=== PATIENT | female | born 1960 | race Caucasian/White ===

== ENCOUNTER 2016-06-28 18:48 | Emergency (ER) | payer OTHER ==
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
--- NOTE | 2016-06-28 21:49 | ED ORDER SUMMARY ---
..... Patient: AGUEDA TRAN OrderSheet [facility] VisitID: [id number] [place] [address] 56y, F Registration Date/Time: 06/28/2016 ORDER SHEET Weight: 94.3 kg (stated) Allergies: Penicillins, Sulfa Antibiotics GENERAL ORDERS: Thoracic Spine 3V Urgent (19:15 06/28/2016 EKoroleva P.A.-C) (Ack 19:21 NHouse ER Tech1) (20:46 MCampbell) Lumbar Spine 2 or 3V Urgent (19:15 06/28/2016 EKoroleva P.A.-C) (Ack 19:21 NHouse ER Tech1) (20:46 MCampbell) UA-Culture if indicated Urgent (19:16 06/28/2016 EKoroleva P.A.-C) (Ack 19:21 NHouse ER Tech1) (19:57 RCollier R.N.) MEDICATION ORDERS: Hydrocodone-APAP PO 5/325 mg (NOW, HIGH ALERT MEDICATION) (20:04 06/28/2016 EKoroleva P.A.-C) (Ack 20:04 RCollier R.N.) (20:08 RCollier R.N.) IV FLUIDS: ORDER SHEET NOTES: [Electronically signed by Becky Lambert R.N. (21:58 06/28/2016)] [Electronically signed by Chana Shelton P.A.-C (22:49 06/28/2016)] [Electronically locked/signed by Becky Lambert R.N. (21:58 06/28/2016)]
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
--- NOTE | 2016-06-28 21:49 | ED ORDER SUMMARY ---
..... Patient: AGUEDA TRAN OrderSheet [facility] VisitID: [id number] [place] [address] 56y, F Registration Date/Time: 06/28/2016 ORDER SHEET Weight: 94.3 kg (stated) Allergies: Penicillins, Sulfa Antibiotics GENERAL ORDERS: Thoracic Spine 3V Urgent (19:15 06/28/2016 EKoroleva P.A.-C) (Ack 19:21 NHouse ER Tech1) (20:46 MCampbell) Lumbar Spine 2 or 3V Urgent (19:15 06/28/2016 EKoroleva P.A.-C) (Ack 19:21 NHouse ER Tech1) (20:46 MCampbell) UA-Culture if indicated Urgent (19:16 06/28/2016 EKoroleva P.A.-C) (Ack 19:21 NHouse ER Tech1) (19:57 RCollier R.N.) MEDICATION ORDERS: Hydrocodone-APAP PO 5/325 mg (NOW, HIGH ALERT MEDICATION) (20:04 06/28/2016 EKoroleva P.A.-C) (Ack 20:04 RCollier R.N.) (20:08 RCollier R.N.) IV FLUIDS: ORDER SHEET NOTES: [Electronically signed by Becky Lambert R.N. (21:58 06/28/2016)] [Electronically signed by Chana Shelton P.A.-C (22:49 06/28/2016)] [Electronically locked/signed by Becky Lambert R.N. (21:58 06/28/2016)]
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
--- NOTE | 2016-06-28 22:49 | ED MED RECONCILIATION SUMMARY ---
Patient: AGUEDA TRAN Medication Reconciliation Report [facility] VisitID: [id number] [address] [place] [address] 56y, F Registration Date/Time: 06/28/2016 Weight: 94.3 kg Height/Length: 64 in. BMI: 35.7 ALLERGIES: Penicillins, Sulfa Antibiotics The patient's Home Medications are listed below: THE FOLLOWING MEDICATIONS NEED TO BE RECONCILED: Albuterol Sulfate Inhalation, doesn't have one ASA Oral Omeprazole Oral The source(s) of the original Home Medication information: patient The following Medications were given to the patient in the Emergency Department: Hydrocodone-APAP [PO] PO 1 tab, administered: 06/28/2016 8:08:00 PM The following Medications were prescribed to the patient: Motrin 800 mg tablets: take 1 tablet orally every 8 hours for 5 days, as needed for pain. Dispense fifteen (15). No refill. Substitution is permissible. -- Chana Shelton, P.ASharee-Jonathan Ultram 50 mg: take 1 orally every 6 hours for 3 days, as needed for pain. Dispense fifteen (15). No refills. Substitution is permissible. -- Chana Shelton, P.A.-C
--- NOTE | 2016-06-28 22:49 | ED MED RECONCILIATION SUMMARY ---
Patient: AGUEDA TRAN Medication Reconciliation Report [facility] VisitID: [id number] [address] [place] [address] 56y, F Registration Date/Time: 06/28/2016 Weight: 94.3 kg Height/Length: 64 in. BMI: 35.7 ALLERGIES: Penicillins, Sulfa Antibiotics The patient's Home Medications are listed below: THE FOLLOWING MEDICATIONS NEED TO BE RECONCILED: Albuterol Sulfate Inhalation, doesn't have one ASA Oral Omeprazole Oral The source(s) of the original Home Medication information: patient The following Medications were given to the patient in the Emergency Department: Hydrocodone-APAP [PO] PO 1 tab, administered: 06/28/2016 8:08:00 PM The following Medications were prescribed to the patient: Motrin 800 mg tablets: take 1 tablet orally every 8 hours for 5 days, as needed for pain. Dispense fifteen (15). No refill. Substitution is permissible. -- Chana Shelton, P.ASharee-Jonathan Ultram 50 mg: take 1 orally every 6 hours for 3 days, as needed for pain. Dispense fifteen (15). No refills. Substitution is permissible. -- Chana Shelton, P.A.-C
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
--- NOTE | 2016-06-28 22:49 | ED MAR SUMMARY ---
..... Medication Administration Record [facility] [address] [place] [address] Patient: AGUEDA TRAN Visit ID: [id number] 56y, F Weight: 94.3 kg Height/Length: 64 in BMI: 35.7 ALLERGIES: Penicillins, Sulfa Antibiotics Given 20:08 06/28/2016 Becky Lambert RShareeNSharee Medication Administered: HYDROCODONE-APAP [PO] (HYDROCODONE-ACETAMINOPHEN), Dose: 1 tab 5/325 mg Tablets PO. Medication Ordered: Hydrocodone-APAP PO 5/325 mg (NOW, HIGH ALERT MEDICATION).
--- NOTE | 2016-06-28 22:49 | ED MAR SUMMARY ---
..... Medication Administration Record [facility] [address] [place] [address] Patient: AGUEDA TRAN Visit ID: [id number] 56y, F Weight: 94.3 kg Height/Length: 64 in BMI: 35.7 ALLERGIES: Penicillins, Sulfa Antibiotics Given 20:08 06/28/2016 Becky Lambert RShareeNSharee Medication Administered: HYDROCODONE-APAP [PO] (HYDROCODONE-ACETAMINOPHEN), Dose: 1 tab 5/325 mg Tablets PO. Medication Ordered: Hydrocodone-APAP PO 5/325 mg (NOW, HIGH ALERT MEDICATION).
== END 2016-06-28 21:58 | disposition home or self-care (01) ==
LOC: ED SRH 18:48
DX: S20.229A Contusion of unspecified back wall of thorax, initial encounter (principal); Y04.8XXA Assault by other bodily force, initial encounter; Y93.9 Activity, unspecified; Y92.9 Unspecified place or not applicable; Y99.9 Unspecified external cause status; K21.9 Gastro-esophageal reflux disease without esophagitis; F17.200 Nicotine dependence, unspecified, uncomplicated; Z79.82 Long term (current) use of aspirin; Z88.2 Allergy status to sulfonamides
CPT/HCPCS: 90004

== ENCOUNTER 2016-06-29 19:01 | Emergency (ER) | payer OTHER ==
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
--- NOTE | 2016-06-29 22:42 | ED ORDER SUMMARY ---
..... Patient: AGUEDA TRAN OrderSheet [facility] VisitID: [id number] [place] [address] 56y, F Registration Date/Time: 06/29/2016 ORDER SHEET Weight: 97.0 kg (stated) Allergies: Penicillins, Sulfa Antibiotics GENERAL ORDERS: Rapid Influenza Screen (Nasal Pharyngeal) (Nasal pharyngeal ) Urgent (21:40 06/29/2016 HSoule verbal order read back to EKoroleva P.A.-C) (Ack 21:44 LTapper) (21:55 AMcQuoid ER Tech1) Chest 2V Urgent (21:40 06/29/2016 EKoroleva P.A.-C) (Ack 21:44 LTapper) (21:52 MCampbell) MEDICATION ORDERS: - (tamiflu 75 mg po now) (22:23 06/29/2016 EKoroleva P.A.-C) (Ack 22:43 HSoule) (22:52 HSoule) Tylenol w Codeine PO 2 tabs (HIGH ALERT MEDICATION, NOW) (22:43 06/29/2016 EKoroleva P.A.-C) (22:52 HSoule) Motrin PO 800 mg (NOW) (22:43 06/29/2016 EKoroleva P.A.-C) (22:52 HSoule) Phenergan PO 25 mg (HIGH ALERT MEDICATION, NOW) (22:43 06/29/2016 EKoroleva P.A.-C) (22:52 HSoule) Tylenol PO 325 mg (NOW) (23:15 06/29/2016 EKoroleva P.A.-C) (23:18 Colin R.N.) IV FLUIDS: ORDER SHEET NOTES: [Electronically signed by Becky Lambert R.N. (23:51 06/29/2016)] [Electronically signed by Chana Shelton P.A.-C (13:14 06/30/2016)] [Electronically locked/signed by Becky Lambert R.N. (23:51 06/29/2016)]
--- NOTE | 2016-06-29 22:42 | ED ORDER SUMMARY ---
..... Patient: AGUEDA TRAN OrderSheet [facility] VisitID: [id number] [place] [address] 56y, F Registration Date/Time: 06/29/2016 ORDER SHEET Weight: 97.0 kg (stated) Allergies: Penicillins, Sulfa Antibiotics GENERAL ORDERS: Rapid Influenza Screen (Nasal Pharyngeal) (Nasal pharyngeal ) Urgent (21:40 06/29/2016 HSoule verbal order read back to EKoroleva P.A.-C) (Ack 21:44 LTapper) (21:55 AMcQuoid ER Tech1) Chest 2V Urgent (21:40 06/29/2016 EKoroleva P.A.-C) (Ack 21:44 LTapper) (21:52 MCampbell) MEDICATION ORDERS: - (tamiflu 75 mg po now) (22:23 06/29/2016 EKoroleva P.A.-C) (Ack 22:43 HSoule) (22:52 HSoule) Tylenol w Codeine PO 2 tabs (HIGH ALERT MEDICATION, NOW) (22:43 06/29/2016 EKoroleva P.A.-C) (22:52 HSoule) Motrin PO 800 mg (NOW) (22:43 06/29/2016 EKoroleva P.A.-C) (22:52 HSoule) Phenergan PO 25 mg (HIGH ALERT MEDICATION, NOW) (22:43 06/29/2016 EKoroleva P.A.-C) (22:52 HSoule) Tylenol PO 325 mg (NOW) (23:15 06/29/2016 EKoroleva P.A.-C) (23:18 Colin R.N.) IV FLUIDS: ORDER SHEET NOTES: [Electronically signed by Becky Lambert R.N. (23:51 06/29/2016)] [Electronically signed by Chana Shelton P.A.-C (13:14 06/30/2016)] [Electronically locked/signed by Becky Lambert R.N. (23:51 06/29/2016)]
--- NOTE | 2016-06-29 23:08 | DIAGNOSTIC IMAGING REPORT ---
PROCEDURE: XR CHEST 2 VIEW INDICATION: FEVER, initial encounter TECHNIQUE: PA and lateral view. COMPARISON: None. FINDINGS: Lungs are clear. Cardiovascular structures are normal. Bony thorax is unremarkable. IMPRESSION: 1. Negative chest.
--- NOTE | 2016-06-30 13:15 | ED MAR SUMMARY ---
..... Medication Administration Record [facility] [address] [place] [address] Patient: AGUEDA TRAN Visit ID: [id number] 56y, F Weight: 97.0 kg Height/Length: 64 in BMI: 36.7 ALLERGIES: Penicillins, Sulfa Antibiotics Given 06/29/2016 Tatiana Arvizu, Medication Administered: TAMIFLU [PO], Dose: 75 mg Capsules PO. Medication Ordered: - (tamiflu 75 mg po now). Given :06/29/2016 Tatiana Arvizu, Medication Administered: TYLENOL W CODEINE [PO] (ACETAMINOPHEN-CODEINE), Dose: 2 tab Tablets PO. Medication Ordered: Tylenol w Codeine PO 2 tabs (HIGH ALERT MEDICATION, NOW). Given 06/29/2016 Tatiana Arvizu, Medication Administered: MOTRIN [PO], Dose: 800 mg Tablets PO. Medication Ordered: Motrin PO 800 mg (NOW). Given :06/29/2016 Tatiana Arvizu, Medication Administered: PHENERGAN [PO] (PROMETHAZINE HCL), Dose: 25 mg Tablets PO. Medication Ordered: Phenergan PO 25 mg (HIGH ALERT MEDICATION, NOW). Given 06/29/2016 Becky Lambert R.N. Medication Administered: TYLENOL [PO] (ACETAMINOPHEN), Dose: 325 mg Tablets PO. Medication Ordered: Tylenol PO 325 mg (NOW).
--- NOTE | 2016-06-30 13:15 | ED MAR SUMMARY ---
..... Medication Administration Record [facility] [address] [place] [address] Patient: AGUEDA TRAN Visit ID: [id number] 56y, F Weight: 97.0 kg Height/Length: 64 in BMI: 36.7 ALLERGIES: Penicillins, Sulfa Antibiotics Given 06/29/2016 Tatiana Arvizu, Medication Administered: TAMIFLU [PO], Dose: 75 mg Capsules PO. Medication Ordered: - (tamiflu 75 mg po now). Given :06/29/2016 Tatiana Arvizu, Medication Administered: TYLENOL W CODEINE [PO] (ACETAMINOPHEN-CODEINE), Dose: 2 tab Tablets PO. Medication Ordered: Tylenol w Codeine PO 2 tabs (HIGH ALERT MEDICATION, NOW). Given 06/29/2016 Tatiana Arvizu, Medication Administered: MOTRIN [PO], Dose: 800 mg Tablets PO. Medication Ordered: Motrin PO 800 mg (NOW). Given :06/29/2016 Tatiana Arvizu, Medication Administered: PHENERGAN [PO] (PROMETHAZINE HCL), Dose: 25 mg Tablets PO. Medication Ordered: Phenergan PO 25 mg (HIGH ALERT MEDICATION, NOW). Given 06/29/2016 Becky Lambert R.N. Medication Administered: TYLENOL [PO] (ACETAMINOPHEN), Dose: 325 mg Tablets PO. Medication Ordered: Tylenol PO 325 mg (NOW).
--- NOTE | 2016-06-30 13:15 | ED MED RECONCILIATION SUMMARY ---
Patient: AGUEDA TARN Medication Reconciliation Report [facility] VisitID: [id number] [place] [address] 56y, F Registration Date/Time: 06/29/2016 Weight: 97.0 kg Height/Length: 64 in. BMI: 36.7 ALLERGIES: Penicillins, Sulfa Antibiotics The patient's Home Medications are listed below: THE FOLLOWING MEDICATIONS NEED TO BE RECONCILED: Albuterol Sulfate Inhalation, doesn't have one ASA Oral Omeprazole Oral The source(s) of the original Home Medication information: patient The following Medications were given to the patient in the Emergency Department: Tamiflu [PO] PO 75 mg, administered: 06/29/2016 10:52:00 PM TYLENOL W CODEINE [PO] PO 2 tab, administered: 06/29/2016 10:52:00 PM Motrin [PO] PO 800 mg, administered: 06/29/2016 10:52:00 PM Phenergan [PO] PO 25 mg, administered: 06/29/2016 10:52:00 PM Tylenol [PO] PO 325 mg, administered: 06/29/2016 11:18:00 PM The following Medications were prescribed to the patient: Zofran (orally disintegrating tablets) 4 mg: take 1 orally every 6 hours for 3 days as needed for nausea. Dispense ten (10). No refill. Substitution is permissible. -- Chana Shelton, P.A.-C Robitussin A-C cough syrup take five (5) mL orally every 6 hours as needed for cough for 3 days. Dispense sixty (60) mL. No refill. Substitution is permissible. -- Chana Shelton, P.A.-C Tamiflu 75 mg: take 1 capsule orally every 12 hours for 5 days. Dispense ten (10). No refills. Substitution is permissible. -- Chana Shelton, P.A.-C
--- NOTE | 2016-06-30 13:15 | ED MED RECONCILIATION SUMMARY ---
Patient: AGUEDA TRAN Medication Reconciliation Report [facility] VisitID: [id number] [place] [address] 56y, F Registration Date/Time: 06/29/2016 Weight: 97.0 kg Height/Length: 64 in. BMI: 36.7 ALLERGIES: Penicillins, Sulfa Antibiotics The patient's Home Medications are listed below: THE FOLLOWING MEDICATIONS NEED TO BE RECONCILED: Albuterol Sulfate Inhalation, doesn't have one ASA Oral Omeprazole Oral The source(s) of the original Home Medication information: patient The following Medications were given to the patient in the Emergency Department: Tamiflu [PO] PO 75 mg, administered: 06/29/2016 10:52:00 PM TYLENOL W CODEINE [PO] PO 2 tab, administered: 06/29/2016 10:52:00 PM Motrin [PO] PO 800 mg, administered: 06/29/2016 10:52:00 PM Phenergan [PO] PO 25 mg, administered: 06/29/2016 10:52:00 PM Tylenol [PO] PO 325 mg, administered: 06/29/2016 11:18:00 PM The following Medications were prescribed to the patient: Zofran (orally disintegrating tablets) 4 mg: take 1 orally every 6 hours for 3 days as needed for nausea. Dispense ten (10). No refill. Substitution is permissible. -- Chana Shelton, P.A.-C Robitussin A-C cough syrup take five (5) mL orally every 6 hours as needed for cough for 3 days. Dispense sixty (60) mL. No refill. Substitution is permissible. -- Chana Shelton, P.A.-C Tamiflu 75 mg: take 1 capsule orally every 12 hours for 5 days. Dispense ten (10). No refills. Substitution is permissible. -- Chana Shelton, P.A.-C
--- NOTE | 2016-06-30 13:15 | ED DISCHARGE INSTRUCTIONS ---
Patient: AGUEDA TRAN General Instructions [facility] VisitID: [id number] [place] [address] 56y, F Registration Date/Time: 06/29/2016 Acute febrile illness Influenza type A. INSTRUCTIONS Drink plenty of fluids. Prescription Medications: Zofran (orally disintegrating tablets) 4 mg: take 1 orally every 6 hours for 3 days as needed for nausea. Dispense ten (10). No refill. Substitution is permissible. Robitussin A-C cough syrup take five (5) mL orally every 6 hours as needed for cough for 3 days. Dispense sixty (60) mL. No refill. Substitution is permissible. Tamiflu 75 mg: take 1 capsule orally every 12 hours for 5 days. Dispense ten (10). No refills. Substitution is permissible. Follow-up: Follow up with your doctor Sunday. ADDITIONAL INFORMATION Febrile Illness, Uncertain Cause (Adult) You have a fever, but the cause is not certain. A fever is a natural reaction of the body to an illness such as infections due to a virus or bacteria. In most cases, the temperature itself is not harmful. It actually helps the body fight infections. A fever does not need to be treated unless you feel very uncomfortable. Sometimes a fever can be an early sign of a more serious infection. Therefore, you should watch for the signs listed below. Home Care: If signs and symptoms are severe, rest at home for the first 2-3 days. When you resume activity, don't let yourself get too tired. Stay away from cigarette smoke (yours and other peoples). You may use acetaminophen (Tylenol) or ibuprofen (Motrin, Advil) to control fever or pain, unless another medicine was prescribed. NOTE: If you have chronic liver or kidney disease or ever had a stomach ulcer or GI bleeding, talk with your doctor before using these medicines. (Aspirin should never be used in anyone under 18 years of age who is ill with a fever. It may cause severe liver damage.) Your appetite may be poor, so a light diet is fine. Avoid dehydration by drinking 6-8 glasses of fluid per day (water, sport drinks such as Gatorade, sodas without caffeine, juices, tea, soup). Extra fluid will help loosen secretions in the nose and lungs. Xpta-dta-ejwdhsx products will not shorten the duration of the illness but may be helpful for the following symptoms: cough (Robitussin DM); sore throat (Chloraseptic lozenges or spray); nasal and sinus congestion (Actifed or Sudafed). NOTE: Do not use decongestants if you have high blood pressure. Follow Up with your doctor or as advised if you do not start to improve over the next week. Get Prompt Medical Attention if any of the following occur: Cough with lots of colored sputum (mucus) or blood in your sputum Chest pain, shortness of breath, wheezing or difficulty breathing Severe headache, face, neck, throat or ear pain Feeling drowsy or confused Abdominal pain, repeated vomiting or diarrhea Joint pain or a new rash Burning when urinating Fever of 100.4F (38C) oral or higher, not better with fever medication Feeling weak or dizzy Convulsion Influenza (Adult) Influenza, also called the flu, is a viral illness that affects the air passages of the lungs. It differs from the common cold. It is highly contagious. It may be spread through the air by coughing and sneezing or by direct contact (touching the sick person and then touching your own eyes, nose or mouth). Illness starts 1-3 days after exposure and lasts for 1-2 weeks. Antibiotics are usually not needed unless a complication appears (ear or sinus infection or pneumonia). Symptoms may be mild or severe and can include extreme tiredness (wanting to stay in bed all day), chills, fevers, muscle aching, soreness with eye movement, headache, and a dry, hacking cough. Home Care: Avoid exposure to cigarette smoke (yours or others). Tylenol or ibuprofen (Advil) will help fever, muscle aching, and headache. To avoid risk of liver injury, aspirin should not be used in children and teenagers under 18 with this illness. Nausea and loss of appetite are common. A light diet is recommended. Avoid dehydration by drinking 6-8 glasses of fluids per day (water, sport drinks like Gatorade, soft drinks without caffeine, juices, tea, soup, etc.). Extra fluids will also help loosen secretions in the nose and lungs. Slel-mcy-anuxcll cold medicines will not shorten the duration of the illness but may be helpful for the following symptoms: cough (Robitussin DM); sore throat (Chloraseptic lozenges or spray); nasal and sinus congestion (Actifed or Sudafed). [NOTE: Do not use decongestants if you have high blood pressure.] Stay home until your fever has been gone for at least 24 hours (without the use of fever-reducing medications such as ibuprofen). Follow Up with your doctor or as directed by our staff if you are not improving over the next week. Note: If you are age 65 or older, or if you have chronic asthma or COPD, we recommend a pneumococcal vaccinationevery five years. All adults shouldreceive a yearly influenza vaccination every . Ask your doctor about this. Get Prompt Medical Attention if any of the following occur: Cough with lots of colored sputum (mucus) or blood in your sputum Chest pain, shortness of breath, wheezing, or difficulty breathing Severe headache, face, neck or ear pain New rash Fever of 100.4F (38C) oral or higher, not better with fever medication Confusion, behavior change or seizure Severe weakness or dizziness Ondansetron Hydrochloride Oral tablet What is this medicine? ONDANSETRON (on VON se lee) is used to treat nausea and vomiting caused by chemotherapy. It is also used to prevent or treat nausea and vomiting after surgery. How should I use this medicine? Take this medicine by mouth with a glass of water. Follow the directions on your prescription label. Take your doses at regular intervals. Do not take your medicine more often than directed. Talk to your dental laboratory assistant regarding the use of this medicine in children. Special care may be needed. What side effects may I notice from receiving this medicine? Side effects that you should report to your doctor or health long term care pharmacist as soon as possible: allergic reactions like skin rash, itching or hives, swelling of the face, lips or tongue breathing problems dizziness fast or irregular heartbeat feeling faint or lightheaded, falls fever and chills swelling of the hands or feet tightness in the chest Side effects that usually do not require medical attention (report to your doctor or health long term care pharmacist if they continue or are bothersome): constipation or diarrhea headache What may interact with this medicine? Do not take this medicine with any of the following medications: -apomorphine -cisapride -dofetilide -dronedarone -pimozide -thioridazine -ziprasidone This medicine may also interact with the following medications: -carbamazepine -phenytoin -rifampicin -tramadol -other medicines that prolong the QT interval (cause an abnormal heart rhythm) What if I miss a dose? If you miss a dose, take it as soon as you can. If it is almost time for your next dose, take only that dose. Do not take double or extra doses. Where should I keep my medicine? Keep out of the reach of children. Store between 2 and 30 degrees C (36 and 86 degrees F). Throw away any unused medicine after the expiration date. What should I tell my health care provider before I take this medicine? They need to know if you have any of these conditions: heart disease history of irregular heartbeat liver disease low levels of magnesium or potassium in the blood an unusual or allergic reaction to ondansetron, granisetron, other medicines, foods, dyes, or preservatives or trying to get breast-feeding What should I watch for while using this medicine? Check with your doctor or health long term care pharmacist right away if you have any sign of an allergic reaction. You have been given the following additional information: Febrile Illness, Uncertain Cause (Adult) Influenza (Adult) Ondansetron Hydrochloride Oral tablet (Electronically signed by Chana Shelton P.A.-C 06/30/2016 13:14)
== END 2016-06-29 23:49 | disposition home or self-care (01) ==
LOC: ED SRH 19:01
DX: J10.1 Influenza due to other identified influenza virus with other respiratory manifestations (principal); K21.9 Gastro-esophageal reflux disease without esophagitis; Z79.82 Long term (current) use of aspirin; Z88.0 Allergy status to penicillin; Z88.2 Allergy status to sulfonamides
CPT/HCPCS: 91400